=== PATIENT | male | born 1965 | race Caucasian/White ===

== ENCOUNTER → 2016-12-19 | Outpatient (CLI) | payer OTHER | END | disposition home or self-care (01) | LOC: CFH 08:14 → EDSTATUS 09:00 | PROVIDERS: ATTEND Internal Medicine Cardiovascular Disease | DX: R94.31 Abnormal electrocardiogram [ECG] [EKG] (principal); R07.89 Other chest pain | CPT/HCPCS: 93306 ==

== ENCOUNTER → 2019-07-07 | Outpatient (CLI) | payer BC ==
[~2019-07-07] MED LIST: OMNIPAQUE 350 MG/ML, 150 ML BOTTLE ONE
== END | disposition home or self-care (01) ==
LOC: CFH 12:33
PROVIDERS: ATTEND Internal Medicine Cardiovascular Disease
DX: I48.0 Paroxysmal atrial fibrillation (principal)
CPT/HCPCS: 75572; 82565; Q9967

== ENCOUNTER 2019-07-11 07:58 | Observation (INO) | payer BC ==
[2019-07-10 09:43] VITALS: BP 127/90
[2019-07-10 10:31] LABS: CALCIUM 9.4 mg/dL (8.5-10.1); CREATININE 1.18 mg/dL (0.7-1.3)
[2019-07-10 10:42] LABS: ANION GAP 5 mmol/L (5-15); CHLORIDE 109 mmol/L (98-107)
[2019-07-10 10:58] LABS: MEAN CORPUSCULAR HEMOGLOBIN 32.2 pg (27.5-34.5); MEAN CORPUSCULAR HGB CONC 33.6 g/dL (33.2-36.2); MEAN CORPUSCULAR VOLUME 95.9 fL (81-97); RED BLOOD COUNT 4.89 x10^6/uL (4.38-5.82); RED CELL DISTRIBUTION WIDTH 14.2 % (9.4-14.8)
[2019-07-10 10:59] LABS: MEAN PLATELET VOLUME 11.2 fL (7.4-10.4)
[2019-07-10 11:00] LABS: PLATELET COUNT 180 x10^3/uL (130-400)
[2019-07-10 11:04] LABS: BASOPHILS # (AUTO) 0.04 x10^3/uL (0-0.1); BASOPHILS % (AUTO) 1 % (0-1); EOSINOPHILS # (AUTO) 0.04 x10^3/uL (0-0.4); EOSINOPHILS % (AUTO) 1 % (1-7); LYMPHOCYTES # (AUTO) 1.73 x10^3/uL (1-3.4); LYMPHOCYTES % (AUTO) 31 % (22-44); MD SCAN; MONOCYTES # (AUTO) 0.61 x10^3/uL (0.2-0.8); MONOCYTES % (AUTO) 11 % (2-9); NEUTROPHILS # (AUTO) 3.14 x10^3/uL (1.8-6.8); NEUTROPHILS % (AUTO) 57 % (42-75)
[~2019-07-11] VITALS: Ht 180.3 cm; Wt 84.0 kg
[~2019-07-11 07:58] MED LIST changes: +AMLO2.5T5 PO; +ENAL20TA PO; +HYDR25TA6 PO; +METO25TA35 PO; -OMNIPAQUE 350 MG/ML, 150 ML BOTTLE ONE; +ROSU10TA2 PO
[2019-07-11] MEDS ORDERED: SODIUM CHLORIDE 0.9% 1,000 ML IV SCH ×2 (08:09→08:30)
[2019-07-11] MEDS ORDERED: Testosterone TP (08:19)
[2019-07-11] MEDS ORDERED: PROPOFOL 50 ML ONE (10:31)
[2019-07-11] MEDS ORDERED: MIDAZOLAM 1 MG/ML, 2ML ONE (10:32)
[2019-07-11] MEDS ORDERED: FENTANYL PF 250 MCG/5ML ONE (10:32)
[2019-07-11] MEDS ORDERED: LIDOCAINE 1%, 20ML ONE (11:16)
[2019-07-11] MEDS ORDERED: HEPARIN 1,000 UNITS/ML, 10ML ONE ×2 (12:41)
[2019-07-11] MEDS ORDERED: ROCURONIUM 10MG/ML,5ML ONE (12:41)
[2019-07-11] MEDS ORDERED: ONDANSETRON 2MG/ML, 2ML ONE (12:41)
[2019-07-11] MEDS ORDERED: SUCCINYLCHOLINE 20 MG/ML, 10ML ONE (12:41)
[2019-07-11] MEDS ORDERED: APIXABAN 5 MG TABLET ONE (15:24)
[2019-07-11] MEDS ORDERED: FENTANYL PF 100 MCG/2ML ONE (16:36)
[2019-07-11] MEDS ORDERED: OXYcodone 5 MG/5 ML ORAL.SOL UDC ONE (16:36)
[2019-07-11] MEDS: FENTANYL PF 100 MCG/2ML IV PRN ×2 (16:38→16:50)
[2019-07-11] MEDS ORDERED: HYDROmorphone 2 MG/ML, 1ML IVPush PRN (17:00)
[2019-07-11] MEDS ORDERED: OXYcodone 5 MG/5 ML ORAL.SOL UDC PO PRN (17:00)
[2019-07-11] MEDS ORDERED: MORPHINE SULFATE 4 MG/ML, 1ML IVPush PRN (17:00)
[2019-07-11 17:41] VITALS: BP 106/67
[2019-07-11] MEDS: FLECAINIDE 100MG TABLET PO SCH (18:20)
[2019-07-11 19:13] VITALS: BP 112/70
[2019-07-11] MEDS ORDERED: APIXABAN 5 MG TABLET PO SCH ×2 (20:02→21:00)
[2019-07-11] MEDS: APIXABAN 5 MG TABLET PO SCH (20:24)
[2019-07-11] MEDS: ENALAPRIL 20MG TABLET PO SCH (20:24)
[2019-07-11] MEDS: COLCHICINE 0.6 MG CAPSULE PO SCH (20:25)
[2019-07-11] MEDS ORDERED: ATORVASTATIN 20 MG TABLET PO SCH (21:00)
[2019-07-12] VITALS: BP 112/76
[2019-07-12] MEDS ORDERED: MORPHINE SULFATE 4 MG/ML, 1ML IVPush PRN (04:30)
[2019-07-12] MEDS ORDERED: ACETAMINOPHEN 325 MG TABLET PO PRN (04:30)
[2019-07-12] MEDS ORDERED: OXYcodone/APAP 5/325MG TABLET PO PRN (04:30)
[2019-07-12] MEDS: FLECAINIDE 100MG TABLET PO SCH (04:35)
[2019-07-12] MEDS ORDERED: FLEC100T PO (07:36)
[2019-07-12] MEDS ORDERED: APIX5TAB PO (07:36)
[2019-07-12 07:45] VITALS: BP 111/71
[2019-07-12] MEDS ORDERED: KETOROLAC 30 MG/1 ML IVPush ONE (08:00)
[2019-07-12] MEDS: ENALAPRIL 20MG TABLET PO SCH (08:12)
[2019-07-12] MEDS: APIXABAN 5 MG TABLET PO SCH (08:12)
[2019-07-12] MEDS: COLCHICINE 0.6 MG CAPSULE PO SCH (08:27)
[2019-07-12] MEDS ORDERED: HYDROCHLOROTHIAZIDE 25 MG TABLET PO SCH (09:00)
[2019-07-12] MEDS ORDERED: AMLODIPINE 2.5 MG TABLET PO SCH (09:00)
[2019-07-12] MEDS ORDERED: COLC0.6C3 PO (09:46)
== END 2019-07-12 12:21 | disposition home or self-care (01) ==
LOC: CACL 07:58 → ORIP 15:30 → 5SO 17:37
PROVIDERS: ADMIT Internal Medicine Cardiovascular Disease; ATTEND Internal Medicine Cardiovascular Disease
DX: I48.91 Unspecified atrial fibrillation (principal); I48.92 Unspecified atrial flutter; I10 Essential (primary) hypertension; Z88.2 Allergy status to sulfonamides
CPT/HCPCS: 36415; 71046; 80048; 85025; 85347; 93306; 93312; 93321; 93325; 93613; 93655; 93656; 93657; 93662; 96374; C1730; C1732; C1759; C1766; C1769; C1893; C1894; G0378; J0330; J1644; J1885; J2250; J2405; J2704; J3010; J3490

== ENCOUNTER 2020-06-04 10:02 | Emergency (ER) | payer BC ==
[~2020-06-04] VITALS: Ht 180.3 cm; Wt 80.9 kg
[~2020-06-04 10:02] MED LIST changes: +APIX5TAB PO; +COLC0.6C3 PO; -ENAL20TA PO; +ENAL20TA9 PO; +FLEC100T PO; +Testosterone TP
--- NOTE | 2020-06-04 10:25 | NUR ---
Pt brought back from triage with chief complaint of right rib pain and hydropneumo- sent from urgent care. PT A&O, no signs of distress.
--- NOTE | 2020-06-04 10:29 | NUR ---
SARAI Colon at bedside for evaluation.
--- NOTE | 2020-06-04 10:51 | NUR ---
Report to Jl GUERRA
[2020-06-04 11:30] VITALS: BP 168/111
--- NOTE | 2020-06-04 11:30 | NUR ---
PT RESTING IN [facility]. NAD. VSS.
== END 2020-06-04 12:10 | disposition home or self-care (01) ==
LOC: ED 10:46
DX: S22.31XA Fracture of one rib, right side, initial encounter for closed fracture (principal); S00.33XA Contusion of nose, initial encounter; S27.0XXA Traumatic pneumothorax, initial encounter; I10 Essential (primary) hypertension; W18.39XA Other fall on same level, initial encounter; Y93.73 Activity, racquet and hand sports; Y92.89 Other specified places as the place of occurrence of the external cause; Y99.8 Other external cause status
CPT/HCPCS: 99283

== ENCOUNTER → 2020-06-06 | Outpatient (CLI) | payer BC | END | disposition home or self-care (01) | LOC: RAD 08:00 | PROVIDERS: ATTEND Physician Assistant | DX: S22.41XA Multiple fractures of ribs, right side, initial encounter for closed fracture (principal); X58.XXXA Exposure to other specified factors, initial encounter; Y93.89 Activity, other specified; Y92.89 Other specified places as the place of occurrence of the external cause; Y99.8 Other external cause status | CPT/HCPCS: 71046 ==